=== PATIENT | female | born 1985 | race African-American/Black ===

== ENCOUNTER → 2017-12-18 | Day surgery (SDC) | payer OTHER ==
[~2017-12-18] VITALS: Ht 172.7 cm; Wt 101.4 kg
[~2017-12-18] MED LIST: BUPIVACAINE/EPINEPHRINE 0.5% PF 10 ML VIAL ONE; CHLORHEXIDINE GLUCONATE 2 % 1 PACK (2 CLOTHS) TOPICAL PRN; DEXAMETHASONE SOD PHOS 4 MG/ML VIAL IV ONE; DO NOT ADM ANY ANTICOAGULANT DRUGS PRN; EPIP0.3I IM; IBUP1TAB5 PO; LACTATED RINGER'S 1000 ML IV PRN; LIDOCAINE HCL 1% PF 5 ML SYRINGE OTHER ONE; METOPROLOL TARTRATE 25 MG TAB PO PRN; MIDAZOLAM HCL 2 MG/2 ML VIAL ONE; MUPIROCIN 2% OINT 22 GM TUBE ONE; NAPR250T4 PO; ONDANSETRON HCL 4 MG/2 ML VIAL IV ONE; POVIDONE IODINE 5% (ANTISEPSIS KIT) 4 APPLICATIONS EACH NARE PRN; PROPOFOL 200 MG/20 ML AMP IV ONE; SODIUM CHLORID 0.9% 500 ML IV PRN; ceFAZolin 1,000 MG/NS 100 ML IV SCH
[2017-12-18 10:15] VITALS: BP 112/70; PULSE 90; RESP 16; TEMP 97.5; O2SAT 99
--- NOTE | 2017-12-19 12:32 | PD.OP ---
Operative Report Date of Surgery: December 18, 2017 Preoperative Diagnosis: (1) Carpal tunnel syndrome on right Postoperative Diagnosis: (1) Carpal tunnel syndrome on right Procedure: Right open carpal tunnel release (67999) Anesthesia: General Surgeon: Raj Melgar Erector Operator(s): . Operation and Findings: 32-year-old female who presented to clinic with signs and symptoms consistent with right carpal tunnel syndrome. Risks benefits alternative treatments were discussed. All questions were answered and the patient expressed understanding. Patient elected to assume the risks of right open carpal tunnel release. Informed consent was obtained. Surgical site was marked in the preoperative holding bay. The patient was given antibiotics on-call to the operating room. The patient was taken to the operating room and all pressure points were padded. A surgical timeout was performed. After the smooth induction of general anesthesia, the surgical site was instilled with quarter percent Marcaine with epinephrine. The surgical site was prepped and draped in the usual sterile fashion. The upper extremity was exsanguinated using Esmarch bandage and an appropriately padded upper extremity tourniquet was inflated to 250 mmHg. An incision was made over the carpal tunnel. Sharp and blunt dissection was carried down to the transverse carpal ligament, which was meticulously and completely incised using the freer elevator as a backstop. The antebrachial fascia was dissected free from the surrounding soft tissue using the tenotomy scissors and sharply incised, taking care to avoid injury to the adjacent structures. Following confirmation of complete release of the transverse carpal ligament and antebrachial fascia with digital palpation, the wound was copiously irrigated. The skin was closed with interrupted 4O nylons in a horizontal mattress fashion. The surgical site was cleaned and dressed with mupirocin ointment Xeroform gauze dry gauze fluffs and an Jaziel wrap. All needle sponge and instrument counts were correct 2. The patient was awoken from anesthesia and arrived stable doing well to the PACU. Raj Melgar MD Dec 19, 2017 12:32
== END | disposition home or self-care (01) ==
LOC: HSDC 05:42
PROVIDERS: ATTEND Student in an Organized Health Care Education/Training Program
DX: G56.01 Carpal tunnel syndrome, right upper limb (principal)
CPT/HCPCS: 01810; 64721; 84702; J0690; J1100; J2250; J2405; J3010; J7120